=== PATIENT | female | born 1995 | race Caucasian/White ===

== ENCOUNTER 2023-02-28 13:50 | Emergency (ER) | payer OTHER ==
[~2023-02-28] VITALS: Ht 157.5 cm; Wt 95.0 kg
[2023-02-28 14:30] VITALS: TEMP 98.9; O2SAT 99
[2023-02-28 15:45] VITALS: BP 138/93; PULSE 79; RESP 16
[2023-02-28] MEDS ORDERED: KETOROLAC 30MG/ML VIAL IM ONE (15:45)
[2023-02-28 16:24] LABS: HEMATOCRIT 35.4 % (36.0-48.0); HEMOGLOBIN 11.2 g/dL (12.0-16.0); MEAN CORPUSCULAR HEMOGLOBIN 23.6 pg (28.0-32.0); MEAN CORPUSCULAR HGB CONC 31.6 g/dL (31.0-37.0); MEAN CORPUSCULAR VOLUME 74.8 fL (81.0-99.0); PLATELET 368 x1000/uL (130-400); RED BLOOD CELL COUNT 4.74 mill/uL (4.2-5.4); WHITE BLOOD COUNT 11.1 x1000/uL (4.5-11.0)
[2023-02-28 16:47] LABS: ALANINE AMINOTRANSFERASE 45 IU/L (10-49); ALBUMIN 4.2 g/dL (3.2-4.8); ASPARTATE AMINOTRANSFERASE 27 IU/L (<34); BILIRUBIN TOTAL 0.4 mg/dL (0.1-1.0); CALCIUM 9.1 mg/dL (8.7-10.4); CARBON DIOXIDE 25 mEq/L (21-32); CHLORIDE 105 mEq/L (98-107); CREATININE 0.6 mg/dL (0.6-1.0); GLUCOSE 212 mg/dL (70-105); POTASSIUM 4.1 mEq/L (3.5-5.1); PROTEIN TOTAL 7.2 g/dL (6.0-8.3); SODIUM 138 mEq/L (136-145); UREA NITROGEN BLOOD 12 mg/dL (9-23)
[2023-02-28] MEDS ORDERED: IBUP-2029 MT (17:30)
[2023-02-28] MEDS ORDERED: T3 PO (17:30)
[2023-02-28 18:20] LABS: CLARITY URINE CLEAR (CLEAR); COLOR URINE YELLOW (YELLOW); GLUCOSE URINE TRACE (NEGATIVE); KETONES URINE NEGATIVE (NEGATIVE); LEUKOCYTE ESTERASE URINE NEGATIVE (NEGATIVE); NITRITE URINE NEGATIVE (NEGATIVE); OCCULT BLOOD URINE 1+ (NEGATIVE); PH URINE 5.5 (4.5-8.0); PROTEIN URINE 2+ (NEGATIVE); SPECIFIC GRAVITY URINE 1.049 (1.005-1.030); UROBILINOGEN URINE 0.2 E.U./dL (0.2-1.0)
[2023-02-28 18:23] LABS: YEAST URINE NONE SEEN
[2023-02-28 18:50] LABS: BACTERIA URINE 1+; SQUAMOUS EPITHELIAL CELL URINE FEW /lpf (RARE/1+); WBC URINE 0-2 /hpf (0-2)
== END 2023-02-28 18:02 | disposition home or self-care (01) ==
LOC: ER 15:07
DX: N92.0 Excessive and frequent menstruation with regular cycle (principal); D50.9 Iron deficiency anemia, unspecified; E11.9 Type 2 diabetes mellitus without complications
CPT/HCPCS: 99285; 76830; 76856; 80053; 81003; 81025; 84702; 85027; 86850; 86900; 86901; 36415; 96372; J1885